=== PATIENT | male | born 1975 | race Caucasian/White ===

== ENCOUNTER 2017-02-26 14:56 | Emergency (ER) | payer OTHER ==
--- NOTE | 2017-02-26 16:18 | ERPHSYRPT ---
- History of Present Illness Time Seen by Provider: 02/26/17 16:11 Source: patient Exam Limitations: no limitations Patient Subjective Stated Complaint: PATIENT ADMITTED TO [facility] LAST NIGHT. HX OF IV MORPHINE AND BATH SALT ABUSE. STATES "I SHOOT UP ALL THE TIME". TODAY IS HAVING PAIN ALL OVER AND HAVING WITHDRAWAL SYMPTOMS. [facility] STATES THAT THEIR MEDICAL GROUP WOULD BE UNABLE TO PROVIDE THEM WITH WITHDRAWAL MEDS SO THEY PRESENTED TO ED. Triage Nursing Assessment: PATIENT C/O PAIN ALL OVER. STATES "I'M BURNING INSIDE". HAS SEVERAL NEEDLE CLINE TO ARM, LEGS, NECK. MOST AREAS ARE RED AND SWOLLEN. SEVERAL ATTEMPTS TO START IV AND UNSUCCESSFUL. SKIN PALE, WARM. RESP NONLABORED. DENIES V/D. A/O TIMES THREE. SLEEPY AT TIMES. Physician History: The patient is a 41-year-old male who was arrested yesterday and placed in the [facility]. Today he is in pain throughout his body. He very clearly states that he is an IV drug user, using morphine several times a day and bath salts several times a day as well. He states he will use to 30 mg tablets of morphine put them in a spoon heating it up with a little water and injected. He would do the same with bath salts. He prefers bath salts. He has injected himself dozens of times daily. Today he says he is withdrawing. Timing/Duration: today Severity: severe Modifying Factors: Improves With: nothing Associated Symptoms: other (pain) Allergies/Adverse Reactions: No Known Drug Allergies Allergy (Verified 02/26/17 15:58) Hx Tetanus, Diphtheria Vaccination/Date Given: Yes (2014) Hx Influenza Vaccination/Date Given: No Hx Pneumococcal Vaccination/Date Given: No - Review of Systems Constitutional: Other (The patient is a thin male curled in the position on the bed.), No Fever, No Chills Eyes: No Symptoms Ears, Nose, & Throat: No Symptoms Respiratory: No Cough, No Dyspnea Cardiac: No Chest Pain, No Edema, No Syncope Abdominal/Gastrointestinal: No Abdominal Pain, No Nausea, No Vomiting, No Diarrhea Genitourinary Symptoms: No Dysuria Musculoskeletal: No Back Pain, No Neck Pain Skin: Other (There are numerous excoriations throughout his extremities and on his neck. Both hands are swollen.), No Rash Neurological: No Dizziness, No Focal Weakness, No Sensory Changes Psychological: Drug Abuse Endocrine: No Symptoms Hematologic/Lymphatic: No Symptoms Immunological/Allergic: No Symptoms All Other Systems: Reviewed and Negative - Past Medical History Pertinent Past Medical History: Yes Other Medical History: SUBSTANCE ABUSE - Past Surgical History Past Surgical History: Yes Gastrointestinal: Cholecystectomy - Social History Smoking Status: Never smoker Exposure to second hand smoke: No Drug Use: marijuana, bath salts, methamphetamines, narcotics, heroin Patient Lives Alone: No - Nursing Vital Signs Nursing Vital Signs: Initial Vital Signs Temperature 97.7 F Temperature Source Oral Pulse Rate 87 Respiratory Rate 16 Blood Pressure [Left Arm] 113/78 Blood Pressure [Right Arm] 126/77 Pain Intensity 7 - Physical Exam General Appearance: moderate distress, thin Eye Exam: PERRL/EOMI, eyes nml inspection Ears, Nose, Throat Exam: normal ENT inspection, TMs normal, pharynx normal, moist mucous membranes Neck Exam: normal inspection, non-tender, supple, full range of motion Respiratory Exam: normal breath sounds, lungs clear, No respiratory distress Cardiovascular Exam: regular rate/rhythm, normal heart sounds, normal peripheral pulses, No tachycardia Gastrointestinal/Abdomen Exam: soft, normal bowel sounds, No tenderness, No mass Rectal Exam: not done Back Exam: normal inspection, normal range of motion, No CVA tenderness, No vertebral tenderness Extremity Exam: normal inspection, normal range of motion, pelvis stable Neurologic Exam: depressed mood/affect Skin Exam: other Lymphatic Exam: No adenopathy SpO2 Interpretation: normal (There are numerous excoriations with healing scabs on various parts of the anatomy including the neck upper extremities and lower extremities. Both hands are swollen.) SpO2: 97 Oxygen Delivery: Room Air Ordered Tests: Active Orders 24 hr Category Date Time Status IV Insertion STAT Care 02/26/17 15:58 Active Soft Diet Diet 02/26/17 Dinner Active CBC W DIFF Stat Lab 02/26/17 16:22 Completed CMP Stat Lab 02/26/17 16:22 Completed LIPASE Stat Lab 02/26/17 16:22 Completed Lactic Acid Stat Lab 02/26/17 16:12 Completed TROPONIN Stat Lab 02/26/17 16:22 Completed UA W/RFX UR CULTURE Stat Lab 02/26/17 18:00 Completed Urine Triage Profile Stat Lab 02/26/17 18:00 Completed Medication Summary Generic Name Dose Route Start Last Admin Trade Name Freq PRN Reason Stop Dose Admin Sodium Chloride 1,000 mls @ 999 mls/hr 02/26/17 17:47 02/26/17 17:48 Sodium Chloride 0.9% 1000 Ml IV 02/26/17 18:47 999 mls/hr .Q1H1M STA Administration Discontinued Medications Generic Name Dose Route Start Last Admin Trade Name Candice PRN Reason Stop Dose Admin Sodium Chloride Confirm 02/26/17 16:50 Sodium Chloride 0.9% 1000 Ml Administered 02/26/17 16:51 Dose 1,000 mls @ ud .ROUTE .STK-MED ONE Ceftriaxone Sodium/Dextrose 1 g in 50 mls @ 100 mls/hr 02/26/17 18:14 18:27 Rocephin 1 Gm-D5w 50 Ml Bag IV 02/26/17 18:43 100 mls/hr STAT ONE Administration Ceftriaxone Sodium/Dextrose Confirm 02/26/17 18:25 Rocephin 1 Gm-D5w 50 Ml Bag Administered 02/26/17 18:26 Dose 1 g in 50 mls @ ud IV .STK-MED ONE Lidocaine HCl Confirm 02/26/17 16:58 Xylocaine 1% Hcl 20 Ml Mdv Administered 02/26/17 16:59 Dose 5 ml .ROUTE .STK-MED ONE Lab/Rad Data: Laboratory Result Diagrams 02/26/17 16:22 02/26/17 16:22 Laboratory Results 02/26/17 02/26/17 02/26/17 Range/Units 18:00 18:00 16:22 WBC (4.0-10.5) K/mm3 RBC (4.1-5.6) M/mm3 Hgb (12.5-18.0) gm/dl Hct (42-50) % MCV (78-100) fl MCH (26-32) pg MCHC (32-36) g/dl RDW (11.5-14.0) % Plt Count (150-450) K/mm3 MPV (6-9.5) fl Gran % (36.0-66.0) % Lymphocytes % (24.0-44.0) % Monocytes % (0.0-12.0) % Eosinophils % (0.00-5.0) % Basophils % (0.0-0.4) % Basophils # (0-0.4) Sodium 142 (136-145) mEq/L Potassium 4.0 (3.5-5.1) mEq/L Chloride 107 (98-107) mEq/L Carbon Dioxide 28.1 (21-32) mEq/L Anion Gap 11.1 (5-15) MEQ/L BUN 10 (9-20) mg/dL Creatinine 0.91 (0.55-1.30) mg/dl Estimated GFR > 60 ML/MIN Glucose 101 (70-110) MG/DL Lactic Acid (0.4-2.0) Calcium 8.6 (8.5-10.1) mg/dL Total Bilirubin 0.20 (0.2-1.0) mg/dL AST 184 H (15-37) U/L ALT 226 H (12-78) U/L Alkaline Phosphatase 158 H (46-116) U/L Troponin I < 0.017 (0.000-0.056) ng/ml Serum Total Protein 6.5 (6.4-8.2) gm/dL Albumin 2.7 L (3.4-5.0) g/dL Lipase 190 (73-393) U/L Ur Collection Type CLEAN CATCH Urine Color YELLOW (YELLOW) Urine Appearance CLOUDY (CLEAR) Urine pH 8.5 (5-6) Ur Specific [place] 1.020 (1.005-1.025) Urine Protein NEGATIVE (Negative) Urine Glucose (UA) NEGATIVE (NEGATIVE) mg/dL Urine Ketones NEGATIVE (NEGATIVE) Urine Nitrite NEGATIVE (NEGATIVE) Urine Bilirubin NEGATIVE (NEGATIVE) Urine Urobilinogen 2 (0-1) mg/dL Urine WBC (Auto) NEGATIVE (NEGATIVE) Urine RBC (Auto) NEGATIVE (0-5) Rajinder/ul Urine Opiates Level NEG. (NEGATIVE) Ur Methadone NEG. (NEGATIVE) Urine Barbiturates NEG. (NEGATIVE) Ur Phencyclidine (PCP) NEG. (NEGATIVE) Urine Amphetamine NEG. (NEGATIVE) U Benzodiazepine Level NEG. (NEGATIVE) Urine Cocaine NEG. (NEGATIVE) Urine Marijuana (THC) POS. (NEGATIVE) Specimen Received [id number] 02/26/17 02/26/17 Range/Units 16:22 16:12 WBC 8.6 (4.0-10.5) K/mm3 RBC 4.83 (4.1-5.6) M/mm3 Hgb 13.9 (12.5-18.0) gm/dl Hct 43.8 (42-50) % MCV 90.7 (78-100) fl MCH 28.8 (26-32) pg MCHC 31.7 L (32-36) g/dl RDW 14.3 H (11.5-14.0) % Plt Count 362 (150-450) K/mm3 MPV 9.7 H (6-9.5) fl Gran % 62.5 (36.0-66.0) % Lymphocytes % 17.6 L (24.0-44.0) % Monocytes % 8.1 (0.0-12.0) % Eosinophils % 11.1 H (0.00-5.0) % Basophils % 0.7 (0.0-0.4) % Basophils # 0.06 (0-0.4) Sodium (136-145) mEq/L Potassium (3.5-5.1) mEq/L Chloride (98-107) mEq/L Carbon Dioxide (21-32) mEq/L Anion Gap (5-15) MEQ/L BUN (9-20) mg/dL Creatinine (0.55-1.30) mg/dl Estimated GFR ML/MIN Glucose (70-110) MG/DL Lactic Acid 1.5 (0.4-2.0) Calcium (8.5-10.1) mg/dL Total Bilirubin (0.2-1.0) mg/dL AST (15-37) U/L ALT (12-78) U/L Alkaline Phosphatase (46-116) U/L Troponin I (0.000-0.056) ng/ml Serum Total Protein (6.4-8.2) gm/dL Albumin (3.4-5.0) g/dL Lipase (73-393) U/L Ur Collection Type Urine Color (YELLOW) Urine Appearance (CLEAR) Urine pH (5-6) Ur Specific [place] (1.005-1.025) Urine Protein (Negative) Urine Glucose (UA) (NEGATIVE) mg/dL Urine Ketones (NEGATIVE) Urine Nitrite (NEGATIVE) Urine Bilirubin (NEGATIVE) Urine Urobilinogen (0-1) mg/dL Urine WBC (Auto) (NEGATIVE) Urine RBC (Auto) (0-5) Rajinder/ul Urine Opiates Level (NEGATIVE) Ur Methadone (NEGATIVE) Urine Barbiturates (NEGATIVE) Ur Phencyclidine (PCP) (NEGATIVE) Urine Amphetamine (NEGATIVE) U Benzodiazepine Level (NEGATIVE) Urine Cocaine (NEGATIVE) Urine Marijuana (THC) (NEGATIVE) Specimen Received - Progress Progress: improved Progress Note: 02/26/17 18:44 The patient has slept most of the time he's been here. He has been rehydrated with 1 L normal saline. He received 1 g of Rocephin IV. His vital signs are completely normal including a normal heart rate and blood pressure. There are no physical signs of withdrawal at this point in time. - Departure Time of Disposition: 18:45 Departure Disposition: [facility]/Shelter Clinical Impression: IV drug abuse, Cellulitis and abscess of hand Condition: Good Critical Care Time: No Referrals: NALINI MELÉNDEZ MD [Primary Care Provider] - Additional Instructions: At this current time you so no physical signs of withdrawal. You do however have signs of cellulitis of the hands. You were given Rocephin 1 g IV in the ER. Take clindamycin 300 mg 3 times a day for 10 days. Prescriptions: Clindamycin HCl 1 cap PO TID #30 capsule
[2017-02-26 16:29] LABS: BASOPHIL % 0.7 % (0.0-0.4); Eosinophil % 11.1 % (0.00-5.0); Granulocytes % 62.5 % (36.0-66.0); Lymphocytes % 17.6 % (24.0-44.0); Mean Cell Volume 90.7 fl (78-100); Mean Corpuscular Hemoglobin 28.8 pg (26-32); Mean Platelet Volume 9.7 fl (6-9.5); Monocytes % 8.1 % (0.0-12.0); Platelet Count 362 K/mm3 (150-450); Red Blood Count 4.83 M/mm3 (4.1-5.6); Red Cell Distribution Width 14.3 % (11.5-14.0); White Blood Count 8.6 K/mm3 (4.0-10.5)
[2017-02-26] MEDS ORDERED: Sodium Chloride 0.9% 1000 ML 1,000 ML ONE (16:50)
[2017-02-26 16:55] LABS: ALBUMIN 2.7 g/dL (3.4-5.0); ALKALINE PHOSPHATASE 158 U/L (46-116); ANION GAP 11.1 MEQ/L (5-15); BLOOD UREA NITROGEN 10 mg/dL (9-20); CHLORIDE 107 mEq/L (98-107); Carbon Dioxide 28.1 mEq/L (21-32); Glucose 101 MG/DL (70-110); LIPASE 190 U/L (73-393); SGOT/AST 184 U/L (15-37); SGPT/ALT 226 U/L (12-78); SODIUM 142 mEq/L (136-145); TROPONIN < 0.017 ng/ml (0.000-0.056); Total Protein 6.5 gm/dL (6.4-8.2)
[2017-02-26] MEDS ORDERED: XYLOCAINE 1% HCL 20 ML MDV ONE (16:58)
[2017-02-26] MEDS ORDERED: Sodium Chloride 0.9% 1000 ML 1,000 ML IV STA (17:47)
[2017-02-26 18:14] VITALS: O2SAT 97
[2017-02-26] MEDS ORDERED: ROCEPHIN 1 Gm-D5w 50 ml Bag** 1 G/50 ML IVPB IV ONE ×2 (18:14→18:25)
[2017-02-26 18:26] LABS: ADD URINE CULTURE? NO (NO); COMPLETE URINE MICROSCOPIC? NO; Collection Type CLEAN CATCH; Ph 8.5 (5-6)
[2017-02-26 18:44] VITALS: BP 113/78; PULSE 87
== END 2017-02-26 19:03 | disposition home or self-care (01) ==
LOC: ED 14:56 → EEVIPCON 14:56 → ED 19:03
DX: F19.10 Other psychoactive substance abuse, uncomplicated (principal); L03.114 Cellulitis of left upper limb; L03.113 Cellulitis of right upper limb; L02.512 Cutaneous abscess of left hand; L02.511 Cutaneous abscess of right hand
CPT/HCPCS: 36000; 36415; 76942; 80053; 80307; 81002; 83605; 83690; 84484; 85025; 99285; J0696

== ENCOUNTER 2017-09-04 20:18 | Emergency (ER) | payer OTHER ==
[2017-09-04] MEDS ORDERED: Sodium Chloride 0.9% 1000 ML 1,000 ML IV STA (20:53)
[2017-09-04] MEDS ORDERED: BABY ASPIRIN 81 MG CHEW PO ONE (20:54)
[2017-09-04] MEDS ORDERED: BABY ASPIRIN 81 MG CHEW ONE (21:09)
[2017-09-04] MEDS ORDERED: Sodium Chloride 0.9% 1000 ML 1,000 ML ONE (21:09)
[2017-09-04 21:18] LABS: Mean Corpuscular Hemoglobin 31.1 pg (26-32); Mean Platelet Volume 11.3 fl (6-9.5); Platelet Count 175 K/mm3 (150-450); Red Blood Count 5.69 M/mm3 (4.1-5.6); Red Cell Distribution Width 12.2 % (11.5-14.0); White Blood Count 9.2 K/mm3 (4.0-10.5)
--- NOTE | 2017-09-04 21:21 | ERPHSYRPT ---
- History of Present Illness Time Seen by Provider: 09/04/17 21:10 Source: patient Exam Limitations: no limitations Patient Subjective Stated Complaint: Chest pain Triage Nursing Assessment: Pt presents with complaints of intermittent chest tightness, anxious, and heart palpitations. Pt states he was watching tv at about 1830 when he had an episode of "heart pounding" and chest pain, relieved shortly after, occurred again approximately an hour later. Skin PWD, no complaints of pain at this time. 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 Patient is in residential patient he states that at approximately 6:30 was watching TV when his heart began pounding he began feeling tightness in his chest tightness in his face , tingling in his fingertips bilaterally. No shortness of breath no nausea no vomiting. He states that the symptoms went away and then recurred approximately an hour later. Past medical history includes substance abuse. Past surgical history includes cholecystectomy. Social history patient with a history of marijuana baths salts mass narcotics abuse. Patient states he has been in residential for 6 months and has not taken any illicit substances. Transfer techs dizzy Timing/Duration: today (6:30 PM) Severity: moderate Modifying Factors: Improves With: nothing Associated Symptoms: other (tightness in chest paresthesia in fingers tightness in face), No nausea, No vomiting, No abdominal pain Allergies/Adverse Reactions: No Known Drug Allergies Allergy (Verified 02/26/17 15:58) Hx Tetanus, Diphtheria Vaccination/Date Given: Yes Hx Influenza Vaccination/Date Given: No Hx Pneumococcal Vaccination/Date Given: No Immunizations Up to Date: No - Review of Systems Constitutional: Other (hot feeling across his body), No Fever, No Chills Eyes: No Symptoms Ears, Nose, & Throat: No Symptoms Respiratory: No Cough, No Dyspnea Cardiac: Other (chest tightness) Abdominal/Gastrointestinal: No Abdominal Pain, No Nausea, No Vomiting, No Diarrhea Genitourinary Symptoms: No Dysuria Musculoskeletal: No Back Pain, No Neck Pain Skin: No Symptoms, No Rash Neurological: Other (tightness in face tingling in fingertips) Psychological: No Symptoms Endocrine: No Symptoms All Other Systems: Reviewed and Negative - Past Medical History Pertinent Past Medical History: Yes Other Medical History: SUBSTANCE ABUSE - Past Surgical History Past Surgical History: Yes Gastrointestinal: Cholecystectomy - Social History Smoking Status: Never smoker Exposure to second hand smoke: No Drug Use: marijuana, bath salts, methamphetamines, narcotics, heroin Patient Lives Alone: No - Nursing Vital Signs Nursing Vital Signs: Initial Vital Signs Temperature 97.3 F 09/04/17 20:26 Pulse Rate 98 H 09/04/17 20:26 Respiratory Rate 20 09/04/17 20:26 Blood Pressure 150/83 09/04/17 20:26 O2 Sat by Pulse Oximetry 99 09/04/17 20:26 Pain Scale Pain Intensity 0 - Physical Exam General Appearance: anxiety, other (well-developed white male covered in tagtoos , anxious alert) Eye Exam: PERRL/EOMI, eyes nml inspection Ears, Nose, Throat Exam: normal ENT inspection, TMs normal, pharynx normal, moist mucous membranes Neck Exam: normal inspection, non-tender, supple, full range of motion Respiratory Exam: normal breath sounds, lungs clear, No respiratory distress Cardiovascular Exam: regular rate/rhythm, normal heart sounds, normal peripheral pulses Gastrointestinal/Abdomen Exam: soft, normal bowel sounds, No tenderness, No mass Back Exam: normal inspection, normal range of motion, No CVA tenderness, No vertebral tenderness Extremity Exam: normal inspection, normal range of motion, pelvis stable Neurologic Exam: alert, oriented x 3, cooperative, normal mood/affect, nml cerebellar function, nml station & gait, sensation nml, No motor deficits Skin Exam: normal color, warm, dry, No rash Lymphatic Exam: No adenopathy SpO2 Interpretation: normal (99%) SpO2: 99 Oxygen Delivery: Nasal Cannula - Course Nursing assessment & vital signs reviewed: Yes EKG Interpreted by Me: RATE (95 bpm), Sinus Rhythm, NORMAL AXIS, Other (EKG: sinus rhythm, 95 bpm, normal axis, no acute ST OR T wave changes noted) - Radiology Exams Chest X-ray Interpretation: Reviewed by me, No Pneumonia, No Pneumothorax, Other (no acute disease process noted) Ordered Tests: Active Orders 24 hr Category Date Time Status Mobile Home Technician STAT Care 09/04/17 20:57 Active EKG-ER Only STAT Care 09/04/17 20:51 Active IV Insertion STAT Care 09/04/17 20:53 Active Oxygen-ED Only NASAL CANNULA 2 lpm Care 09/04/17 20:55 Active Pulse Oximetry (ED) STAT Care 09/04/17 20:56 Active CHEST 1 VIEW (PORTABLE) Stat Exams 09/04/17 20:50 Taken AMYLASE Routine Lab 09/04/17 21:30 Completed CBC Stat Lab 09/04/17 21:15 Completed CMP Routine Lab 09/04/17 21:30 Completed LIPASE Routine Lab 09/04/17 21:30 Completed TROPONIN Q3H Lab 09/04/17 21:30 Completed Urine Triage Profile Stat Lab 09/04/17 21:16 Completed Medication Summary Discontinued Medications Generic Name Dose Route Start Last Admin Trade Name Freq PRN Reason Stop Dose Admin Aspirin 324 mg 09/04/17 20:54 09/04/17 21:10 Baby Aspirin 81 Mg Chew PO 09/04/17 20:55 324 mg STAT ONE Administration Aspirin Confirm 09/04/17 21:09 Baby Aspirin 81 Mg Chew Administered 09/04/17 21:10 Dose 324 mg .ROUTE .STK-MED ONE Sodium Chloride 1,000 mls @ 999 mls/hr 09/04/17 20:53 09/04/17 21:10 Sodium Chloride 0.9% 1000 Ml IV 09/04/17 21:53 999 mls/hr .Q1H1M STA Administration Sodium Chloride Confirm 09/04/17 21:09 Sodium Chloride 0.9% 1000 Ml Administered 09/04/17 21:10 Dose 1,000 mls @ ud .ROUTE .STK-MED ONE Lab/Rad Data: Laboratory Result Diagrams 09/04/17 21:15 09/04/17 21:30 Laboratory Results 09/04/17 09/04/17 09/04/17 Range/Units 21:30 21:16 21:15 WBC 9.2 (4.0-10.5) K/mm3 RBC 5.69 H (4.1-5.6) M/mm3 Hgb 17.7 (12.5-18.0) gm/dl Hct 51.2 H (42-50) % MCV 90.0 (78-100) fl MCH 31.1 (26-32) pg MCHC 34.6 (32-36) g/dl RDW 12.2 (11.5-14.0) % Plt Count 175 (150-450) K/mm3 MPV 11.3 H (6-9.5) fl Sodium 125 L (136-145) mEq/L Potassium 3.8 (3.5-5.1) mEq/L Chloride 99 (98-107) mEq/L Carbon Dioxide 25.1 (21-32) mEq/L Anion Gap 5.0 (5-15) MEQ/L BUN 12 (9-20) mg/dL Creatinine 0.96 (0.55-1.30) mg/dl Estimated GFR > 60 ML/MIN Glucose 121 H (70-110) MG/DL Calcium 8.9 (8.5-10.1) mg/dL Total Bilirubin 0.60 (0.2-1.0) mg/dL AST 230 H (15-37) U/L ALT 342 H (12-78) U/L Alkaline Phosphatase 116 (46-116) U/L Troponin I < 0.017 (0.000-0.056) ng/ml Serum Total Protein 7.4 (6.4-8.2) gm/dL Albumin 4.0 (3.4-5.0) g/dL Amylase 55 (25-115) U/L Lipase 148 (73-393) U/L Urine Opiates Level NEG. (NEGATIVE) Ur Methadone NEG. (NEGATIVE) Urine Barbiturates NEG. (NEGATIVE) Ur Phencyclidine (PCP) NEG. (NEGATIVE) Urine Amphetamine NEG. (NEGATIVE) U Benzodiazepine Level NEG. (NEGATIVE) Urine Cocaine NEG. (NEGATIVE) Urine Marijuana (THC) NEG. (NEGATIVE) - Progress Progress: improved Progress Note: 09/04/17 23:08 This is a 41-year-old white male who had sudden onset of a tightness in his face tingling in his fingers level both hands tightness in his anterior chest states he felt like his heart was pounding which occurred while he was watching TV and recurred at hour later. Patient arrives that he is obviously anxious EKG normal sinus rhythm 95 bpm normal axis no acute ST or T wave changes essentially normal EKG patient's troponin is normal patient's sodium however is somewhat low at 1.5 patient liver enzymes and SGOT via and a LT are both elevated patient does have a history of substance abuse he states he's been in residential for approximately 6 months Patient appears markedly better after receiving approximately 1/2 L of normal saline Will run in the rest of the of normal saline plan on discharging the patient. Urine drug screen is negative. Troponin was drawn at approximately 3 hours after onset of his symptoms. Will plan on discharging patient diagnosis paresthesias to the face. Noncardiac chest pain. Anxiety. - Departure Time of Disposition: 23:10 Departure Disposition: Alf/Detention Clinical Impression: Non-cardiac chest pain, Anxiety, paresthesia hands and face, Hyponatremia, Elevated AST (SGOT), Elevated serum glutamic pyruvic transaminase (SGPT) level Condition: Fair Critical Care Time: No Referrals: Provider,Unknown [Primary Care Provider] - Additional Instructions: Return to your home Plenty of fluids. Follow-up with your doctor. Return for acute distress or for severe symptoms.
[2017-09-04 22:21] VITALS: O2SAT 99
[2017-09-04 23:00] LABS: ALKALINE PHOSPHATASE 116 U/L (46-116); BLOOD UREA NITROGEN 12 mg/dL (9-20); CHLORIDE 99 mEq/L (98-107); Carbon Dioxide 25.1 mEq/L (21-32); Glucose 121 MG/DL (70-110); LIPASE 148 U/L (73-393); Potassium 3.8 mEq/L (3.5-5.1); SGOT/AST 230 U/L (15-37); SGPT/ALT 342 U/L (12-78); SODIUM 125 mEq/L (136-145); Total Protein 7.4 gm/dL (6.4-8.2)
[2017-09-04 23:01] LABS: TROPONIN < 0.017 ng/ml (0.000-0.056)
[2017-09-04 23:34] VITALS: BP 117/79; PULSE 82
--- NOTE | 2017-09-05 08:54 | XRAY ---
Indication: Chest pain. Comparison: None Single AP chest hyperinflated and clear with a few incidental calcified granulomas. Heart and mediastinal structures within normal limits. Bony thorax intact. Impression: Nonacute hyperinflated chest.
== END 2017-09-04 23:35 | disposition home or self-care (01) ==
LOC: ED 20:18
DX: R07.89 Other chest pain (principal); F41.9 Anxiety disorder, unspecified; R20.2 Paresthesia of skin; E87.1 Hypo-osmolality and hyponatremia; R74.0 Nonspecific elevation of levels of transaminase and lactic acid dehydrogenase [LDH]
CPT/HCPCS: 36000; 36415; 71010; 80053; 80307; 82150; 83690; 84484; 85027; 93005; 93041; 99284; A9270-GY

== ENCOUNTER 2017-09-29 20:38 | Emergency (ER) | payer OTHER ==
[2017-09-29] MEDS ORDERED: Sodium Chloride 0.9% 1000 ML 1,000 ML IV STA (21:03)
[2017-09-29] MEDS ORDERED: Sodium Chloride 0.9% 1000 ML 1,000 ML ONE (21:14)
--- NOTE | 2017-09-29 21:14 | ERPHSYRPT ---
- History of Present Illness Time Seen by Provider: 09/29/17 21:12 Historian: patient, police Exam Limitations: no limitations Patient Subjective Stated Complaint: pt states when he went to the bathroom tonight the stool was ffilled with blood. sttes he has been feeling bad for the last month. denies abd pain. Triage Nursing Assessment: pt alert and oriented, answers questions approp. pt ambulatory with steady gait noted. respirations nonlabored with lungs cta. skin warm and dry. multiple tattoos on face, body, and ext. abd soft and nontender, bowel sounds present x4 quads. no stills assessed at this time. Physician History: 41-year-old male without any significant past medical history started having pain in left lower quadrant abdominal area associated with some blood in his stool. Patient denies any fever, chills, nausea, vomiting. Patient also denies any loss of appetite. Patient did not have a this type of episode before. Timing/Duration: today Activities at Onset: none Quality: cramping Abdominal Pain Onset Location: LLQ Pain Radiation: no radiation Severity of Pain-Max: mild Severity of Pain-Current: mild Associated Symptoms: denies symptoms Previous symptoms: no prior history Allergies/Adverse Reactions: No Known Drug Allergies Allergy (Verified 09/29/17 20:53) Home Medications: Diazepam 5 mg [Valium 5 MG] 0 mg PO DAILY 09/29/17 [History] Hx Tetanus, Diphtheria Vaccination/Date Given: Yes Hx Influenza Vaccination/Date Given: No Hx Pneumococcal Vaccination/Date Given: No Immunizations Up to Date: Yes - Review of Systems Constitutional: No Fever, No Chills Eyes: No Symptoms Ears, Nose, & Throat: No Symptoms Respiratory: No Cough, No Dyspnea Cardiac: No Chest Pain, No Edema, No Syncope Abdominal/Gastrointestinal: Hematochezia, No Abdominal Pain, No Nausea, No Vomiting, No Diarrhea Genitourinary Symptoms: No Dysuria Musculoskeletal: No Back Pain, No Neck Pain Skin: No Rash Neurological: No Dizziness, No Focal Weakness, No Sensory Changes Psychological: No Symptoms Endocrine: No Symptoms All Other Systems: Reviewed and Negative - Past Medical History Pertinent Past Medical History: Yes Other Medical History: SUBSTANCE ABUSE, polyps removed years ago - Past Surgical History Past Surgical History: Yes Gastrointestinal: Cholecystectomy - Social History Smoking Status: Never smoker Exposure to second hand smoke: No Drug Use: marijuana, bath salts, methamphetamines, narcotics, heroin Patient Lives Alone: No - Nursing Vital Signs Nursing Vital Signs: Initial Vital Signs Temperature 97.8 F 09/29/17 20:42 Pulse Rate 81 09/29/17 20:42 Respiratory Rate 18 09/29/17 20:42 Blood Pressure 148/92 09/29/17 20:42 O2 Sat by Pulse Oximetry 99 09/29/17 20:42 Pain Scale Pain Intensity 0 - Physical Exam General Appearance: no apparent distress, alert Eye Exam: PERRL/EOMI, eyes nml inspection Ears, Nose, Throat Exam: normal ENT inspection, pharynx normal, moist mucous membranes Neck Exam: normal inspection, non-tender, supple, full range of motion Respiratory Exam: normal breath sounds, lungs clear, No respiratory distress Cardiovascular Exam: regular rate/rhythm, normal heart sounds Gastrointestinal/Abdomen Exam: soft, No tenderness, No mass Back Exam: normal inspection, normal range of motion, No CVA tenderness, No vertebral tenderness Extremity Exam: normal inspection, normal range of motion, pelvis stable Neurologic Exam: alert, oriented x 3, cooperative, normal mood/affect, nml cerebellar function, sensation nml, No motor deficits Skin Exam: normal color, warm, dry SpO2: 99 Oxygen Delivery: Room Air - Course Nursing assessment & vital signs reviewed: Yes Ordered Tests: Active Orders 24 hr Category Date Time Status CBC W DIFF Stat Lab 09/29/17 21:27 Completed CMP Stat Lab 09/29/17 21:27 Received Manual Differential NC Stat Lab 09/29/17 21:27 Completed Occult Blood,Stool Other Stat Lab 09/29/17 21:04 Uncollected UA W/RFX UR CULTURE Stat Lab 09/29/17 21:45 Completed Urine Triage Profile Stat Lab 09/29/17 21:04 Ordered Medication Summary Generic Name Dose Route Start Last Admin Trade Name Freq PRN Reason Stop Dose Admin Sodium Chloride 1,000 mls @ 999 mls/hr 09/29/17 21:03 09/29/17 21:27 Sodium Chloride 0.9% 1000 Ml IV 09/29/17 22:03 999 mls/hr .Q1H1M STA Administration Ceftriaxone Sodium/Dextrose 1 g in 50 mls @ 100 mls/hr 09/29/17 21:54 Rocephin 1 Gm-D5w 50 Ml Bag IV 09/29/17 22:23 STAT STA Discontinued Medications Generic Name Dose Route Start Last Admin Trade Name Candice PRN Reason Stop Dose Admin Sodium Chloride Confirm 09/29/17 21:14 Sodium Chloride 0.9% 1000 Ml Administered 09/29/17 21:15 Dose 1,000 mls @ ud .ROUTE .KMED ONE Lab/Rad Data: Laboratory Result Diagrams 09/29/17 21:27 Laboratory Results 09/29/17 09/29/17 Range/Units 21:45 21:27 WBC 7.3 (4.0-10.5) K/mm3 RBC 4.80 (4.1-5.6) M/mm3 Hgb 14.7 (12.5-18.0) gm/dl Hct 42.8 (42-50) % MCV 89.2 (78-100) fl MCH 30.6 (26-32) pg MCHC 34.3 (32-36) g/dl RDW 12.4 (11.5-14.0) % Plt Count 266 (150-450) K/mm3 MPV 9.7 H (6-9.5) fl Ur Collection Type CCMS Urine Color YELLOW (YELLOW) Urine Appearance CLEAR (CLEAR) Urine pH 6.0 (5-6) Ur Specific [place] 1.010 (1.005-1.025) Urine Protein NEGATIVE (Negative) Urine Ketones NEGATIVE (NEGATIVE) Urine Blood NEGATIVE (0-5) Rajinder/ul Urine Nitrite NEGATIVE (NEGATIVE) Urine Bilirubin NEGATIVE (NEGATIVE) Urine Urobilinogen NORMAL (0-1) mg/dL Ur Leukocyte Esterase NEGATIVE (NEGATIVE) Urine Culture Reflexed NO (NO) Urine Glucose NEGATIVE (NEGATIVE) mg/dL Specimen Received 09-29-170 - Progress Progress: improved Counseled pt/family regarding: lab results, diagnosis, need for follow-up - Departure Time of Disposition: 21:59 Departure Disposition: Home Clinical Impression: Sigmoid diverticulitis Condition: Stable Critical Care Time: Yes Critical Care Time(excluding separately billable procedures): 30-74 minutes Referrals: DOCTOR,NO FAMILY [Primary Care Provider] - Instructions: Diverticulitis Additional Instructions: During your ER visit with physical exam and laboratory data suggest that you have a sigmoid diverticulitis, which was a cause for your bleeding. Your hemoglobin 14.2, which is appears to be stable. You are advised to get your CBC checked in 2 days. You are prescribed antibiotics and use should finished antibiotic course. Follow-up with your physician in next 2-3 days. If your symptoms get worse or bleeding get worse, come back to the emergency room. Prescriptions: Ciprofloxacin [Cipro 500 MG] 500 mg PO BIDAC #20 tablet Metronidazole 500 mg [Flagyl 500 MG] 500 mg PO TID #21 tablet
[2017-09-29 21:31] LABS: Granulocyte Absolute (ANC) 3.75 (1.4-6.9); Hematocrit 42.8 % (42-50); Hemoglobin 14.7 gm/dl (12.5-18.0); Mean Cell Volume 89.2 fl (78-100); Mean Corpuscular Hemoglobin 30.6 pg (26-32); Mean Corpuscular Hgb Concent. 34.3 g/dl (32-36); Mean Platelet Volume 9.7 fl (6-9.5); Platelet Count 266 K/mm3 (150-450); Red Cell Distribution Width 12.4 % (11.5-14.0); White Blood Count 7.3 K/mm3 (4.0-10.5)
[2017-09-29 21:53] LABS: Appearance CLEAR (CLEAR); Bilirubin NEGATIVE (NEGATIVE); Blood NEGATIVE Ery/ul (0-5); Glucose NEGATIVE (NEGATIVE); Ketones NEGATIVE (NEGATIVE); Leukocyte Esterase NEGATIVE (NEGATIVE); Nitrite NEGATIVE (NEGATIVE); Protein,Urine Dip NEGATIVE (Negative); Urobilinogen NORMAL mg/dL (0-1)
[2017-09-29] MEDS ORDERED: ROCEPHIN 1 Gm-D5w 50 ml Bag** 1 G/50 ML IVPB IV STA (21:54)
[2017-09-29 22:00] LABS: Amphetamine,Urine NEG. (NEGATIVE); Barbiturate,Urine NEG. (NEGATIVE); Benzodiazepine,Urine NEG. (NEGATIVE); Cocaine,Urine NEG. (NEGATIVE); Methadone,Urine NEG. (NEGATIVE); Opiate,Urine NEG. (NEGATIVE); PCP,Urine NEG. (NEGATIVE); THC,Urine NEG. (NEGATIVE)
[2017-09-29] MEDS ORDERED: Rocephin 1000 MG INJ IM ONE (22:00)
[2017-09-29 22:05] LABS: ALBUMIN 4.1 g/dL (3.4-5.0); ALKALINE PHOSPHATASE 122 U/L (46-116); ANION GAP 14.9 MEQ/L (5-15); BLOOD UREA NITROGEN 9 mg/dL (9-20); CHLORIDE 105 mEq/L (98-107); Calcium 9.1 mg/dL (8.5-10.1); Carbon Dioxide 27.5 mEq/L (21-32); EST GLOMERULAR FILTRATION RATE > 60 ML/MIN; Glucose 98 MG/DL (70-110); Potassium 4.2 mEq/L (3.5-5.1); SGOT/AST 121 U/L (15-37); SGPT/ALT 245 U/L (12-78); SODIUM 143 mEq/L (136-145); Total Protein 7.6 gm/dL (6.4-8.2)
[2017-09-29] MEDS ORDERED: Rocephin 1000 MG INJ ONE ×2 (22:11→22:13)
[2017-09-29] MEDS ORDERED: XYLOCAINE 1% HCL 20 ML MDV ONE ×2 (22:11→22:15)
[2017-09-29 22:28] LABS: ATYPICAL LYMPHS 12 %; Eosinophil 8 % (0.00-3.0); Lymphocytes 24 % (24-44); Monocyte 5 % (0.0-12.0); Neutrophils 51 % (36.-66.); Platelet Estimate NORMAL (NORMAL); Total Cells Counted 100
[2017-09-29 22:40] VITALS: BP 134/77; PULSE 76; O2SAT 98
== END 2017-09-29 22:39 | disposition home or self-care (01) ==
LOC: ED 20:38
DX: K57.32 Diverticulitis of large intestine without perforation or abscess without bleeding (principal); R10.32 Left lower quadrant pain; Z86.010 Personal history of colon polyps; F12.90 Cannabis use, unspecified, uncomplicated; F15.90 Other stimulant use, unspecified, uncomplicated
CPT/HCPCS: 36000; 36415; 80053; 80307; 81002; 85025; 96360; 96374; 99284; J0696